=== PATIENT | female | born 1940 | race Caucasian/White ===

== ENCOUNTER 2018-05-24 20:08 | Emergency (ER) | payer MEDICARE, OTHER ==
[2018-05-24] MEDS: HYDROCODONE/APAP (10/325) TAB PO (21:26)
[2018-05-24] MEDS: LIDOCAINE 1% (MDV) 20 ML INJ SC (21:26)
== END 2018-05-25 00:12 | disposition home or self-care (01) ==
LOC: FTE 05-25 00:12
DX: S91.111A Laceration without foreign body of right great toe without damage to nail, initial encounter (principal); S92.424B Nondisplaced fracture of distal phalanx of right great toe, initial encounter for open fracture; I10 Essential (primary) hypertension; W04.XXXA Fall while being carried or supported by other persons, initial encounter; Y92.9 Unspecified place or not applicable
CPT/HCPCS: 12001; 73630; 99283-25